=== PATIENT | female | born 1975 ===

== ENCOUNTER 2022-01-25 04:24 | Emergency (ER) | payer SELFPAY ==
[2022-01-25] MEDS ORDERED: SODIUM CHLORIDE 0.9% 500 ML 500 ML IV ONE (04:52)
--- NOTE | 2022-01-25 04:55 | Event Note ---
Date: 01/25/22 pt was brought in here for weakness elevated BP headache for a week and altered mental status pt has history of breast cancer and concerns for brain mets
--- NOTE | 2022-01-25 05:36 | XRay Report ---
CHEST 1 VIEW INDICATION / CLINICAL INFORMATION: Altered Mental Status STUDY TIME: 0503 COMPARISON: None available. FINDINGS: SUPPORT DEVICES: Port-A-Cath has its tip in the area of the atrial caval junction. HEART / MEDIASTINUM: Heart size within normal limits for this projection. The proximal aorta appears more prominent to the right of midline though the arch is seen to extend across to the left with the descending aorta to the left of the spine. Therefore I do not believe this is a true right-sided arch . 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 LUNGS / PLEURA: No significant acute pulmonary or pleural abnormality. No pneumothorax. ADDITIONAL FINDINGS: Right axillary surgical changes are noted. Signer Name: Porfirio Downing MD Signed: 01/25/2022 5:32 AM Workstation Name: [id number]
--- NOTE | 2022-01-25 05:49 | Cat Scan Report ---
CT HEAD WITHOUT CONTRAST INDICATION: Altered Mental Status TECHNIQUE: All CT scans at this location are performed using CT dose reduction for ALARA by means of automated exposure control. COMPARISON: None available. FINDINGS: BRAIN: Prominent all seen calcifications are noted. 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 Prominent white matter microvascular type changes are noted bilaterally. 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 Analogous but smaller area of i schemia is seen extending into the cortex in the left parietal lobe at the vertex which also is favor ed to be old. Age of these areas is not entirely indeterminate however. In the left occipital lobe a small focal area of hypodensity extending through the cortex also is thought to be an area of infarct ion which is age indeterminate. Hemorrhage or mass effect are seen. Mild symmetric lateral ventricle prominence likely is due to central atrophy, favored over hydrocephalus. ORBITS: Normal as visualized. SOFT TISSUES OF HEAD: Normal. CALVARIUM: Right craniotomy defects are seen. VISUALIZED PARANASAL SINUSES AND MASTOID AIR CELLS: Clear. ADDITIONAL FINDINGS: None. IMPRESSION: Multiple areas of ischemic change are seen as well as right-sided surgical change. Be isc hemic changes probably are old though in some areas are age indeterminate without prior studies avail able for comparison. If there is a clinical question of recent infarction I would suggest MR. Signer Name: Porfirio Downing MD Signed: 01/25/2022 5:45 AM Workstation Name: [id number]
[2022-01-25 06:11] LABS: Basophils % (Auto) 0.2 % (0.0-1.8); Eosinophils % (Auto) 0.1 % (0.0-4.3); Hematocrit 42.1 % (30.3-42.9); Hemoglobin 13.9 gm/dl (10.1-14.3); Lymphocytes # (Auto) 0.9 K/mm3 (1.2-5.4); Lymphocytes % (Auto) 13.7 % (13.4-35.0); Mean Corpuscular HGB Conc 33 % (30-34); Mean Corpuscular Volume 97 fl (79-97); Monocytes # (Auto) 0.5 K/mm3 (0.0-0.8); Monocytes % (Auto) 7.2 % (0.0-7.3); Platelet Count 221 K/mm3 (140-440); Red Blood Count 4.33 M/mm3 (3.65-5.03); Red Cell Distribution Width 14.6 % (13.2-15.2)
[2022-01-25 06:20] LABS: INR 0.98 (0.87-1.13)
[2022-01-25 06:33] LABS: Alanine Aminotransferase 25 units/L (7-56); Albumin 4.6 g/dL (3.9-5); BUN/Creatinine Ratio 23; Blood Urea Nitrogen 18 mg/dL (7-17); Calcium 10.3 mg/dL (8.4-10.2); Hemolysis Index 19
--- NOTE | 2022-01-25 07:07 | Emergency Department Report ---
ED Headache HPI - General Chief Complaint: Headache Stated Complaint: HEADACHE Time Seen by Provider: 01/25/22 06:59 - History of Present Illness Initial Comments: Patient is a 46-year-old female with history of breast cancer presenting the ED with complaint of headache, generalized weakness for the past week. Allergies/Adverse Reactions: Allergies No Known Allergies Allergy (Unverified 01/25/22 04:30) Home Medications: Ambulatory Orders hydroCHLOROthiazide [HCTZ] 25 mg PO QDAY #30 tablet 01/25/22 ED Review of Systems ROS: Stated complaint: HEADACHE Other details as noted in HPI Constitutional: weakness (Generalized) Respiratory: denies: cough, shortness of breath, wheezing Cardiovascular: denies: chest pain, palpitations Gastrointestinal: denies: abdominal pain, nausea, diarrhea Genitourinary: denies: urgency, dysuria, discharge Musculoskeletal: denies: back pain, joint swelling, arthralgia Skin: denies: rash, lesions Neurological: headache Psychiatric: denies: anxiety, depression ED Past Medical Hx - Past Medical History Previous Medical History?: Yes Hx Hypertension: Yes Hx of Cancer: Yes (breast cancer) - Social History Smoking Status: Never Smoker Substance Use Type: None - Medications Home Medications: Home Medications Medication Instructions Recorded Confirmed Last Taken Type hydroCHLOROthiazide [HCTZ] 25 mg PO QDAY #30 tablet 01/25/22 Unknown Rx ED Physical Exam - General Limitations: No Limitations General appearance: other (Patient sleeping however arousable to voice. Upon waking states she feels fine. Headache resolved) - Head Head exam: Present: atraumatic, normocephalic - Eye Eye exam: Present: normal appearance, PERRL, EOMI - Respiratory Respiratory exam: Present: normal lung sounds bilaterally. Absent: respiratory distress - Cardiovascular Cardiovascular Exam: Present: regular rate, normal rhythm, normal heart sounds - GI/Abdominal GI/Abdominal exam: Present: soft. Absent: distended, tenderness - Rectal Rectal exam: Present: deferred - Neurological Exam Neurological exam: Present: alert, oriented X3, CN II-XII intact - Psychiatric Psychiatric exam: Present: normal affect, normal mood - Skin Skin exam: Present: warm, dry, intact, normal color ED Course Vital Signs 01/25/22 01/25/22 01/25/22 04:30 06:10 06:32 Temperature 97.7 F Pulse Rate 91 H 80 Respiratory 18 16 Rate Blood Pressure 196/112 Blood Pressure 194/100 [Right] O2 Sat by Pulse 97 98 Oximetry ED Medical Decision Making - Lab Data Result diagrams: 01/25/22 05:38 01/25/22 05:38 - Medical Decision Making CBC, CMP and UA unremarkable. CT head shows postsurgical changes along with scattered ischemic changes, likely old however some a indeterminate. No acute findings on chest x-ray. Patient was given IV labetalol with moderate decrease in blood pressure. At this time she is in no acute distress. Currently does not take anything for her hypertension. Will start on HCTZ with instructions to follow-up with PCP within 1 to 2 weeks. Critical care attestation.: If time is entered above; I have spent that time in minutes in the direct care of this critically ill patient, excluding procedure time. ED Disposition Clinical Impression: Headache, unspecified, Hypertensive urgency Disposition: 01 HOME / SELF CARE / HOMELESS Is pt being admited?: No Condition: Stable Instructions: Hypertension, Adult, [id number], Managing Your Hypertension Additional Instructions: Please follow-up with your regular doctor within 1 to 2 weeks to discuss your high blood pressure and which meds would be best for you. You may return if your symptoms worsen. Time of Disposition: 07:08
[2022-01-25] MEDS ORDERED: SODIUM CHLORIDE 0.9% 500 ML 500 ML ONE (07:50)
[2022-01-25 08:50] VITALS: BP 185/90
== END 2022-01-25 09:15 | disposition home or self-care (01) ==
LOC: ED 04:24
DX: R51.9 Headache, unspecified (principal); I16.0 Hypertensive urgency; Z85.3 Personal history of malignant neoplasm of breast
CPT/HCPCS: 36415; 70450; 71045; 80053; 82140; 82550; 84484; 85025; 85610; 96361; 96374; 99285; J3490; J7040; 80320; G0480